=== PATIENT | male | born 1985 | race Caucasian/White ===

== ENCOUNTER 2024-03-04 04:25 | Emergency (ER) | payer SELFPAY ==
[~2024-03-04] VITALS: Ht 170.2 cm; Wt 54.0 kg
[2024-03-04 04:37] VITALS: TEMP 98.1; O2SAT 99
[2024-03-04] MEDS: ONDANSETRON HCL 4MG TABLET PO ONE (05:24)
[2024-03-04] MEDS: ONDANSETRON HCL 4MG/2ML INJ IV STA (05:49)
[2024-03-04] MEDS: SODIUM CHLORIDE 0.9% 1,000 ML IV ONE (05:57)
[2024-03-04 06:12] LABS: HEMATOCRIT. 48.2 % (42.0-52.0); HEMOGLOBIN. 16.6 g/dL (14.0-18.0); MEAN CORPUSCULAR HEMOGLOBIN 33.1 pg (28.0-32.0); MEAN CORPUSCULAR HGB CONC 34.4 g/dL (31.0-37.0); MEAN CORPUSCULAR VOLUME 96.2 fL (80.0-94.0); MEAN PLATELET VOLUME 8.2 fl (7.4-10.4); PLATELET 315 x1000/uL (130-400); RED BLOOD CELL COUNT 5.01 mill/uL (4.7-6.1); RED CELL DISTRIBUTION WIDTH 12.5 % (11.6-14.6); WHITE BLOOD COUNT 16.3 x1000/uL (4.5-11.0)
[2024-03-04 06:24] LABS: CARBON DIOXIDE 24 mEq/L (21-32); CHLORIDE 103 mEq/L (98-107); POTASSIUM 4.5 mEq/L (3.5-5.1); SODIUM 138 mEq/L (136-145)
[2024-03-04 06:29] LABS: DIFFERENTIAL COMMENT 1; GLUCOSE 116 mg/dL (70-105)
[2024-03-04 06:30] LABS: UREA NITROGEN BLOOD 12 mg/dL (9-23)
[2024-03-04 06:31] LABS: ALANINE AMINOTRANSFERASE 15 IU/L (10-49); ALBUMIN 4.9 g/dL (3.2-4.8); ASPARTATE AMINOTRANSFERASE 17 IU/L (<34)
[2024-03-04 06:32] LABS: BILIRUBIN DIRECT 0.3 mg/dL (<=3.0); BILIRUBIN TOTAL 0.9 mg/dL (0.1-1.0)
[2024-03-04 06:33] LABS: ETHANOL BLOOD < 10 mg/dL (<10)
[2024-03-04] MEDS ORDERED: ONDA-239 PO (10:40)
[2024-03-04 11:50] VITALS: BP 116/68; PULSE 74; RESP 16; O2SAT 99
[2024-03-04 16:50] LABS: PLATELET ESTIMATE NORMAL
== END 2024-03-04 12:10 | disposition home or self-care (01) ==
LOC: ER 04:25
DX: R11.2 Nausea with vomiting, unspecified (principal)
CPT/HCPCS: 80076; 80048; 80320; 83690; 85025; 36415; 96361; 96374; 99283; Q0162; J2405; J7030; Z7610; G0480